=== PATIENT | female | born 1950 | race Caucasian/White ===

== ENCOUNTER 2020-10-21 10:00 | Outpatient (RCR) | payer MEDICARE | END 2020-10-25 | LOC: MKS.ESL.PT | DX: R29.898 Other symptoms and signs involving the musculoskeletal system (principal) ==

== ENCOUNTER 2020-12-10 10:30 | Outpatient (RCR) | payer MEDICARE | END 2021-01-30 | disposition home or self-care (01) | LOC: MKS.ESL.PT | DX: R53.1 Weakness (principal); M54.9 Dorsalgia, unspecified; G89.29 Other chronic pain; R29.6 Repeated falls ==

== ENCOUNTER 2021-05-31 13:05 | Outpatient (CLI) | payer MEDICARE ==
[~2021-05-31] VITALS: Ht 165.1 cm; Wt 99.0 kg
[2021-05-31] MEDS ORDERED: LOPRESSOR 550 MG/TAB PO (13:31)
[2021-05-31] MEDS ORDERED: DESYREL 100MG100 MG PO (13:31)
[2021-05-31] MEDS ORDERED: ZANAFLEX 4MG TAB4 MG PO (13:32)
[2021-05-31] MEDS ORDERED: MINIPRESS 1M1 MG/CAP PO (13:32)
[2021-05-31] MEDS ORDERED: NORCO 325 MG-101 TAB PO (13:32)
[2021-05-31] MEDS ORDERED: KLONOPIN 0.5MG0.5 MG PO (13:33)
[2021-05-31] MEDS ORDERED: CYMBALTA 60MG60 MG PO (13:33)
[2021-05-31] MEDS ORDERED: NEURONTIN300 MG/CAP PO (13:33)
[2021-05-31] MEDS ORDERED: MYSOLINE 5050 MG/TAB PO (13:33)
[2021-05-31] MEDS ORDERED: DEPAKOTE ER 50500 MG PO (13:34)
[2021-05-31] MEDS ORDERED: LIPITOR 40MG TA40 MG PO (13:34)
[2021-05-31 14:15] VITALS: BP 118/60; PULSE 58; TEMP 97.2
== END 2021-05-31 14:16 | disposition home or self-care (01) ==
LOC: EUO 13:05
DX: M81.0 Age-related osteoporosis without current pathological fracture (principal)
CPT/HCPCS: J0897

== ENCOUNTER → 2021-08-04 | Outpatient (CLI) | payer MEDICARE ==
[~2021-08-04] MED LIST: CYMBALTA 60MG60 MG PO; DEPAKOTE ER 50500 MG PO; DESYREL 100MG100 MG PO; KLONOPIN 0.5MG0.5 MG PO; LIPITOR 40MG TA40 MG PO; LOPRESSOR 550 MG/TAB PO; MINIPRESS 1M1 MG/CAP PO; MYSOLINE 5050 MG/TAB PO; NEURONTIN300 MG/CAP PO; NORCO 325 MG-101 TAB PO; ZANAFLEX 4MG TAB4 MG PO
== END ==
LOC: MC.RAD 15:30
DX: Z12.31 Encounter for screening mammogram for malignant neoplasm of breast (principal)

== ENCOUNTER 2021-09-19 11:14 | Outpatient (RCR) | payer MEDICARE | END 2021-09-22 | disposition home or self-care (01) | LOC: MKS.ESL.PT | DX: R53.1 Weakness (principal) ==

== ENCOUNTER → 2022-01-26 | Outpatient (CLI) | payer MEDICARE ==
[~2022-01-26] MED LIST changes: +DESYREL DIVIDO150 M1 PO; +FLONASE NASAL S16 GM NS; +GEMTESA75 MG; +NEURONTIN300 MG/CAP; +NYSTATIN100000 U/1; +SALINE 45 ML45 ML NS
[2022-01-26 23:51] LABS: COLLECTION METHOD CLEAN CATCH
[2022-01-27] LABS: MUCOUS Present (NOT PRESENT); SQUAMOUS EPITHELIAL 0-2 /hpf (0-10); URINE BACTERIA Rare /hpf (NONE SEEN); URINE WBC >50 /hpf (0-2)
[2022-01-27 00:02] LABS: PH 6.5 (5.0-8.5); URINE APPEARANCE Cloudy (CLEAR/HAZY); URINE BLOOD TRACE-INTACT (NEGATIVE); URINE COLOR Yellow (YELLOW); URINE GLUCOSE Negative (NEGATIVE); URINE KETONE TRACE (NEGATIVE); URINE NITRATE Positive (NEGATIVE); URINE PROTEIN(semi-quant) Negative (NEGATIVE); URINE UROBILINOGEN 0.2 E.U/dL (0.2-1.0)
== END ==
LOC: ZCOL.LAB 21:15
PROVIDERS: Family Medicine
DX: R82.90 Unspecified abnormal findings in urine (principal)

== ENCOUNTER 2022-05-03 07:25 | Day surgery (SDC) | payer MEDICARE ==
--- NOTE | 2022-05-03 07:55 | NUR ---
The patient ambulated back to [facility] from the waiting room with her walker and appeared to tolerate the activity well. When reviewing the effectiveness of the colon prep it was found that the patient had only had two bowel movements after completing the prep medication. Dr. Armstrong was made aware and it going to come speak with the patient.
--- NOTE | 2022-05-03 08:30 | NUR ---
Dr. Armstrong is at the patient's bedside discussing the prep and her bowel movements. Dr. Armstrong wants the patient to try and have another bowel movement here that can be collected in a hat to be checked by the nursing staff and doctor.
--- NOTE | 2022-05-03 09:20 | NUR ---
The patient has finished having a bowel movement and it was found to be brown and loose in consistancy. The sample was saved to have Dr. Armstrong observe it.
--- NOTE | 2022-05-03 09:30 | NUR ---
PATIENT PROCEDURE CANCELED DUE TO INADEQUATE PREP, BOWEL MOVEMENT BROWN AND LOOSE. MET WITH PATIENT TO DISCUSS PROCEDURE AND PREP. PATIENT WAS GIVEN MUFFIN AND COFFEE. [facility] TRANSPORT WAS CALLED TO COORDINATE TRANSPORTATION BACK TO FACILITY. PATIENT DISCHARGED AT 1039 WITH TRANSPORT FROM [facility].
== END 2022-05-03 10:39 | disposition home or self-care (01) ==
LOC: SDCO 07:25
DX: K59.00 Constipation, unspecified (principal); Z53.8 Procedure and treatment not carried out for other reasons; Z86.010 Personal history of colon polyps; Z87.891 Personal history of nicotine dependence; Z80.0 Family history of malignant neoplasm of digestive organs

== ENCOUNTER 2022-07-19 10:29 | Day surgery (SDC) | payer MEDICARE ==
[~2022-07-19] VITALS: Ht 165.1 cm; Wt 105.3 kg
[2022-07-19 11:19] VITALS: BP 152/78; PULSE 51; TEMP 97
--- NOTE | 2022-07-19 11:40 | NUR ---
The patient is a resident a [facility] in [place], [place]. She was transported from their facility to [facility] to have an EGD and Colonoscopy. The patient did not come with any transfer papers including an update to date medication list. The patient is unable to asisst the nurse in reconcilling her medication on admission. The admitting nurse attempted to call the facility to have them fax a current home medication list but got an answering machine and a message was left with a fax number to send the medication list.
--- NOTE | 2022-07-19 11:45 | NUR ---
Dr. Armstrong was made aware of the nurse's inabilitiy to reconile the patient's current medications on admission. She was informed that the nurse attempted to call the facility but had a leave a message.
--- NOTE | 2022-07-19 12:00 | NUR ---
The nurse called the civil engineering drafter, Kimberly, at [facility] to inquire about the patient's transfer paperwork including her current medication list. The director informed the nurse that their charting system at the facility is "currently down" and the are unable to "print any papers". She assured the nurse that once is it "up and running" the patient's paperwork will be faxed over.
[2022-07-19 12:40] VITALS: BP 148/84; PULSE 56; TEMP 97.3
[2022-07-19 12:55] VITALS: BP 156/92; PULSE 60
[2022-07-19 13:10] VITALS: BP 135/90; PULSE 57
--- NOTE | 2022-07-19 13:44 | NUR ---
1240: PATIENT TO [facility] VIA CART FROM ENDO SUITE. PATIENT ALERT. VS STABLE. BREATHING EVEN AND UNLABORED. PATIENT DENIES WANTING ANYTHING TO EAT OR DRINK AT THIS TIME. RESTING IN COT. RAILS UP. CALL LIGHT IN REACH. 1245: TRANSPORT CALLED TO [employer]OCIATE PATIENT AT THIS TIME. 1250: PATIENT ASSISTED TO GET DRESSED X2 ASSIST. PATIENT REQUESTING PUDDING, JUICE AND MUFFIN AT THIS TIME. 1255: VS REMAIN STABLE. PATIENT ALERT AND RESTING IN CART. PATIENT TOLERATING FOOD AND DRINK. NO NEEDS AT THIS TIME. CALL LIGHT IN REACH 1300: PATIENT ASSISTED WITH DRESSING X2 ASSIST AND TRANSFERED TO PERSONAL WHEELCHAIR. AWAITING DR. VIEYRA TO SPEAK WITH PATIENT. 1310: VS REMAIN STABLE. DR. VIEYRA IN TO SPEAK WITH PATIENT AT THIS TIME. PATIENT REMAINS IN WHEELCHAIR. NO NEEDS EXPRESSED AT THIS TIME. CALL LIGHT IN REACH. 1315: DISCHARGE EDUCATION COMPLETED. PATIENT STATED UNDERSTANDING OF INSTRUCTIONS. DISCHARGE PAPERWORK GIVEN TO PATIENT. IV DC'D AT THIS TIME. AWAITING TRANSPORT FROM [facility]IVING [facility]AC[facility]. 1335: PATIENT OFF UNIT PER WHEELCHAIR. PATIENT DISCHARGED TO HOME WITH [facility].
--- NOTE | 2022-07-19 14:03 | NUR ---
Initial visit; Patient thanked Assistant Manager Bilingual for offering comfort and prayer prior to her 'Procedures.' Assistant Manager Bilingual prayed that all will be well with Kristin's tests and may they reveal all issues that need to be addressed. Patient said she liked and appreciated the prayer.
== END 2022-07-19 13:35 | disposition home or self-care (01) ==
LOC: SDCO 10:29
DX: K22.4 Dyskinesia of esophagus (principal); K44.9 Diaphragmatic hernia without obstruction or gangrene; K31.89 Other diseases of stomach and duodenum; Z98.84 Bariatric surgery status; Z12.11 Encounter for screening for malignant neoplasm of colon; Z80.0 Family history of malignant neoplasm of digestive organs; K63.5 Polyp of colon; E66.9 Obesity, unspecified
CPT/HCPCS: J0360; J2704; J3010; J7120

== ENCOUNTER → 2023-04-03 | Outpatient (CLI) | payer MEDICARE ==
[~2023-04-03] MED LIST changes: +ASPIRIN E.C. 8181 MG PO; +BENICAR 20MG TA20 MG PO; +CATAPRES 0.1MG0.1 MG PO; +CEFTIN500 MG PO; +CEPHALEXIN500 M1 PO; +CLARITIN 1010 MG/TAB PO; +FOSAMAX 70MG TA70 MG PO; +GERI-TUSSI100 MG/5 M PO; +HYGROTON 2525 MG/TAB PO; +LINZESS72 MCG PO; -LOPRESSOR 550 MG/TAB PO; +MAG-OX 400400 MG/TAB PO; +MIRALAX119G PO; +MYRBETR25MG PO; -NEURONTIN300 MG/CAP; +NORVASC 10MG10 MG PO; +NYSTATIN POWDER15 GM; -NYSTATIN100000 U/1; +TOPROL XL 50MG50 MG PO; +TYLENOL 500MG500 MG PO; +VITAMIN D31000 IU PO; +[UNRECOGNIZED DRUG - OTHER] PO
== END ==
LOC: MHCPAIN 13:11
DX: M48.061 Spinal stenosis, lumbar region without neurogenic claudication (principal); M47.897 Other spondylosis, lumbosacral region
CPT/HCPCS: G0463

== ENCOUNTER → 2023-04-19 | Outpatient (CLI) | payer MEDICARE ==
[~2023-04-19] MED LIST changes: +BACTRIM DS 8001 TAB PO; +BENICAR 20MG TA20 MG; +CRANBERRY450 MG; +HYGROTON 2525 MG/TAB; +Iohexol 300 - 10 ML VIAL ONE; +Lidocaine PF 2% (20 MG/ML) 2 ML VIAL ONE; +MIRALAX PA17 GM/Dose PO; +VOLTAREN GEL 1%1 TU TP
== END ==
LOC: MHCPAIN 08:50
DX: M54.16 Radiculopathy, lumbar region (principal)
CPT/HCPCS: J1100; Q9967

== ENCOUNTER → 2023-05-15 | Outpatient (CLI) | payer MEDICARE, MEDICAID ==
[~2023-05-15] MED LIST changes: -BENICAR 20MG TA20 MG; -CRANBERRY450 MG; +CRANBERRY450 MG PO; -HYGROTON 2525 MG/TAB; -Iohexol 300 - 10 ML VIAL ONE; -Lidocaine PF 2% (20 MG/ML) 2 ML VIAL ONE; +NORCO 325 MG-51 TAB PO; +OMNICEF 300MG300 MG PO
== END ==
LOC: MHCPAIN 10:57
DX: M48.061 Spinal stenosis, lumbar region without neurogenic claudication (principal); M54.50 Low back pain, unspecified; S22.030S Wedge compression fracture of third thoracic vertebra, sequela
CPT/HCPCS: G0463

== ENCOUNTER → 2023-08-24 | Outpatient (RCR) | payer MEDICARE, MEDICAID | END | disposition home or self-care (01) | LOC: WSPT | DX: G62.9 Polyneuropathy, unspecified (principal); M48.07 Spinal stenosis, lumbosacral region ==

== ENCOUNTER → 2023-11-29 | Outpatient (CLI) | payer MEDICARE ==
[~2023-11-29] MED LIST changes: +Gadoterate 20 ML VIAL IV ONE
== END ==
LOC: COL.RAD 11:25
DX: M47.816 Spondylosis without myelopathy or radiculopathy, lumbar region (principal); M48.02 Spinal stenosis, cervical region; M25.78 Osteophyte, vertebrae; M24.28 Disorder of ligament, vertebrae; G62.9 Polyneuropathy, unspecified; Z87.828 Personal history of other (healed) physical injury and trauma; Z86.73 Personal history of transient ischemic attack (TIA), and cerebral infarction without residual deficits
CPT/HCPCS: A9575

== ENCOUNTER → 2024-01-23 | Outpatient (CLI) | payer MEDICARE, MEDICAID ==
[~2024-01-23] MED LIST changes: -Gadoterate 20 ML VIAL IV ONE
== END ==
LOC: COL.RAD 09:08
DX: M47.816 Spondylosis without myelopathy or radiculopathy, lumbar region (principal); M51.369 Other intervertebral disc degeneration, lumbar region without mention of lumbar back pain or lower extremity pain; M48.07 Spinal stenosis, lumbosacral region; M51.379 Other intervertebral disc degeneration, lumbosacral region without mention of lumbar back pain or lower extremity pain; M43.17 Spondylolisthesis, lumbosacral region